=== PATIENT | female | born 2005 | race Caucasian/White ===

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

== ENCOUNTER → 2023-02-25 10:42 | Outpatient (BNV) | payer OTHER, SELFPAY ==
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
== END ==
PROVIDERS: PCP Physician Assistant; Visit Provider Nurse Practitioner Family
DX: G43.709 Chronic migraine without aura, not intractable, without status migrainosus (principal); F43.10 Post-traumatic stress disorder, unspecified; Z86.59 Personal history of other mental and behavioral disorders
CPT/HCPCS: 99205

== ENCOUNTER → 2024-05-25 09:08 | Outpatient (BNVA) | payer OTHER, SELFPAY | PROVIDERS: PCP Physician Assistant; Visit Provider Internal Medicine | DX: S80.02XA Contusion of left knee, initial encounter (principal); W01.0XXA Fall on same level from slipping, tripping and stumbling without subsequent striking against object, initial encounter | CPT/HCPCS: 73564; 99203 ==

== ENCOUNTER → 2024-06-02 12:55 | Outpatient (BNVA) | payer OTHER, SELFPAY | PROVIDERS: PCP Physician Assistant; Visit Provider Physician Assistant Medical | DX: S80.02XD Contusion of left knee, subsequent encounter (principal); W01.0XXD Fall on same level from slipping, tripping and stumbling without subsequent striking against object, subsequent encounter; M23.8X2 Other internal derangements of left knee | CPT/HCPCS: 99213 ==

== ENCOUNTER 2025-06-04 06:04 | Emergency (ER) | payer MEDICAID, SELFPAY ==
[2025-06-04 06:06] VITALS: BP 115/65; PULSE 108; RESP 16; TEMP 36.9; O2SAT 96; BMI 32.2
--- NOTE | 2025-06-04 06:21 | ED.WOUNDLAC ---
HPI - Wound/Laceration General Chief Complaint: Wound/Laceration Stated Complaint: right thumb laceration Time Seen by Provider: 06/04/25 06:17 Source: patient Mode of arrival: ambulatory Limitations: no limitations History of Present Illness HPI narrative: 19 years old the patient presented to emergency department complaining of laceration of the right arm she states she was cooking he she cut the right thumb accidentally Onset (ago): hour(s) (1) Location: other (Right thumb) Associated symptoms: none Related Data Home Medications ?Medication ?Instructions ?Recorded ?Confirmed lorazepam 0.5 mg tablet 1 tab PO DAILY PRN panic attack 09/03/22 09/03/22 Previous Rx's ?Medication ?Instructions ?Recorded diphenhydramine HCl 25 mg capsule 25 mg PO TID PRN migrane #14 caps 09/12/22 (Benadryl) ketorolac 10 mg tablet 10 mg PO TID PRN pain 5 days #15 09/12/22 tabs metoclopramide HCl 10 mg tablet 10 mg PO Q6H PRN migrane #14 tabs 09/12/22 (Reglan) sumatriptan succinate 25 mg tablet 25 mg PO Q2-4H PRN migraine 09/12/22 headache #7 tabs Allergies Allergy/AdvReac Type Severity Reaction Status Date / Time No Known Allergies (No Known Allergy Verified 06/04/25 06:08 Allergies*) Review of Systems Review of Systems: Yes all other systems are reviewed and are negative [facility] Past Medical History Medical History Chronic migraine without aura Bipolar disorder PTSD (post-traumatic stress disorder) Anxious depression Anxiety Chest pain Social History Social History Household Members: Family Housing: House Do you presently have visiting nurse or other home services: No Alcohol intake: current Alcohol intake frequency: holidays/special occasions only Alcohol type: beer, wine and hard liquor Patient Tobacco Use Status: Former Tobacco user Tobacco use type: Cigarette Cigarettes Per Day: 5 Years Smoked: 10 Smoked in Last 30 Days: Yes e-Cigarette/Vaping Use: Former Use Second Hand Smoke Exposure: Yes Use of substances other than those prescribed or required for medical reasons: No Substance Use Type: Marijuana Advance Directives: No Patient : No service: No Sexual orientation: Straight/Heterosexual Physical Exam Exam: Exam: She looks well not toxic Vital Signs: Vital Signs: Last Vital Signs Temp 98.3 F 06/04/25 06:43 Pulse 103 H 06/04/25 06:43 Resp 16 06/04/25 06:43 BP 117/66 06/04/25 06:43 Pulse Ox 95 06/04/25 06:43 O2 Del Method Room Air 06/04/25 06:43 BMI result Body Mass Index 32.2 Const: General: cooperative, comfortable and no acute distress Nutritional Appearance: average body habitus Orientation/consciousness: oriented to time Limitations: no limitations HEENT: Head: Yes normal to inspection General nose exam: Normal external nose present Throat: Yes posterior oropharynx normal Neck: Neck: Yes normal visual inspection and Yes full ROM Chest: Chest palpation & inspection: normal inspection of the chest Resp: Effort & Inspection: normal respiratory effort Auscultation: clear to auscultation bilaterally Cardio: Jugular venous distension: no JVD Rate: regular rate Rhythm: regular rhythm GI: Inspection: Yes normal to inspection Palpation (GI): Soft to palpation, not firm, nontender and no guarding Percussion: Yes normal to percussion Skin: General skin exam: no rashes or lesions noted and elasticity normal Lesions: no lesions Rashes: no rashes Neuro: General: oriented to time Extrem: Other: Examination of the right hand showed about 3 cm with a laceration distal phalanx, range of motion is full no deficits in sensation Medical Decision Making Medical Decision Making MDM Narrative: Patient is here with laceration of the right thumb full range of motion no deficit in strength no deficits in sensation we will go ahead and repaired the laceration Differential Diagnosis Differential Diagnoses: The differential diagnosis associated with the presentation includes Laceration thumb/tendon laceration/digital nerve lac Independent Historian significative other Procedures Laceration Laceration 1: Site: other (Rt Thumb) Side (If applicable): right Size (cm): 3 Description: linear and irregular Depth: simple, single layer Local Anesthetic: lidocaine 1% Amount of anesthesia used (mL): 2 Pre-repair: wound explored and irrigated extensively Skin layer closed with: nylon Size (cm): 4-0 Number of sutures: 4 Technique: simple, interrupted Discharge Plan Discharge Clinical Impression: Laceration of thumb, right Qualifiers: Encounter type: initial encounter Damage to nail status: without damage Foreign body presence: without foreign body Qualified Code(s): S61.011A - Laceration without foreign body of right thumb without damage to nail, initial encounter Patient Disposition: Home, Self-Care Instructions: Finger Laceration (ED) Additional Instructions: Stitches out in 7-10 days either return to the emergency room or urgent care or your primary care physician for stitches removal Prescriptions: No Action lorazepam 0.5 mg tablet 1 tab PO DAILY PRN (Reason: panic attack) ketorolac 10 mg tablet 10 mg PO TID PRN (Reason: pain) 5 Days Qty: 15 0RF Rx Instructions: Tolerated IM in the department diphenhydramine HCl [Benadryl] 25 mg capsule 25 mg PO TID PRN (Reason: migrane) Qty: 14 0RF metoclopramide HCl [Reglan] 10 mg tablet 10 mg PO Q6H PRN (Reason: migrane) Qty: 14 0RF sumatriptan succinate 25 mg tablet 25 mg PO Q2-4H PRN (Reason: migraine headache) Qty: 7 0RF Rx Instructions: do not exceed 8 doses per 24 hrs Stand Alone Forms: Work/School Release Interventions: ED Discharge Assessment Last Done: 06/04/25 06:43 Discharge Date/Time: 06/04/25 06:52 Print Language: Indian
--- NOTE | 2025-06-04 06:40 | PC.NURSE ---
Patient presents to ED after cutting her right thumb with a knife while cooking +CMS +ROM Patient endores ETOH use Patient denies pain VSS and up to date Provider stitched patient thumb Patient planned for discharge
[2025-06-04 06:43] VITALS: BP 117/66; PULSE 103; RESP 16; TEMP 36.8; O2SAT 95
--- OUTSIDE RECORDS SUMMARY | 2025-06-04 06:48 | XMS_ITS | Encounter Summary ---
Author Organization [facility] Address [address] [place] [address] [place] [address] Phone Care Team Providers Care Lag Screwer Name Role Phone Rafia Mullins MD Primary Care Provider [phone] Lennie Guzmán Primary Care Provider [phone] Ger Van MD Unavailable [phone] Kathleen Jimenez MD Unavailable [phone] Damian Issa Unavailable [phone] Constanza Duran Unavailable [email or web address] Brett Tee MD Unavailable [phone] Jackie SheikhW Unavailable favian Bella Calderon RN Unavailable Laxmi Martinez Unavailable Laxmi Martinez [email or web address] Damian Issa Unavailable [phone] Kathleen Jimenez MD Primary Care Provider [phone] Encounter Details Date Type Department Care Team (Latest Contact Info) Description 08/19/2018 Transcribe Orders [facility] Phleb Main [address] [place] [address] Maggy Garcia NP [address] [place] [address] [email or web address] Arthralgia, unspecified joint (Primary Dx) Social History Tobacco Use Types Packs/Day Years Used Date Smoking Tobacco: Never Assessed Comments Unknown Sex and Gender Information Value Date Recorded Sex Assigned at Female 12/14/2019 2:51 PM EDT Legal Sex Female 8:44 PM EDT Gender Identity Female 12/12/2021 5:25 AM EDT Sexual Orientation Bisexual 12/12/2021 5: 25 AM EDT documented as of this encounter Plan of Treatment Not on file documented as of this encounter Results * Lyme screen with reflex to Western blot, blood (08/19/2018 8:22 PM EST) Lyme AB IgG Negative Negative [facility] Lyme AB IgM Negative Negative [facility] Blood 08/19/2018 8:22 PM EST 08/19/2018 8:25 PM EST us Maggy Garcia UNDERGROUND DISTRIBUTION ENGINEER LAB BLOOD BKR ORDERABLES Final R esult [facility] [address] [place] [address] documented in this encounter Visit Diagnoses Diagnosis Arthralgia, unspecified joint- Primary documented in this encounter Additional Health Concerns Infection Onset Date Last Indicated Resolved Time COVID-19 04/02/2023 04/02/2023 04/23/2023 1:22 AM EDT documented as of this encounter Care Teams Lag Screwer Relationship Specialty Start Date End Date Rafia Mullins MD [address] [facility], [address] [place] [address] PCP - General 05/07/17 07/30/21 Lennie Guzmán PA [address] [place] [address] [email or web address] PCP - General 07/31/21 04/04/25 Kathleen Jimenez MD [address] [place], [place] [email or web address] PCP - General Family Medicine 04/05/25 Ger Van MD [address] [place], [place] [email or web address] Insurance Assigned Provider 04/28/22 05/27/22 Kathleen Jimenez MD [address] [place] [address] [email or web address] Insurance Assigned Provider 05/27/22 11/03/22 Damian Issa LICSW [address] [place] [phone] [email or web address] [facility] Field Services Director 09/14/22 04/19/24 Constanza Duran [address] [place] [address] [email or web address] Alcohol Rubber 11/01/22 11/06/22 Brett Tee MD [address] [place] [address] [email or web address] Insurance Assigned Provider 11/03/22 03/30/23 Jackie Sheikh LCSW [address] [place] [address] [email or web address] Field Services Director 01/08/23 04/03/23 Bella Calderon, EFREN [address] [place] [address] [facility] Helpdesk Technician 01/25/23 02/03/23 Laxmi Martinez [address] [place] [phone] Community Health Worker 06/11/23 09/09/23 Laxmi Martinez [address] [place] [address] [email or web address] Community Health Worker 01/06/24 03/16/24 Damian Issa LICSW [address] [place] [address] PHCM Field Services Director 12/22/24 01/19/25 documented as of this encounter Additional Source Comments The information contained in this document represents components of the legal health record. It is not the complete legal health record.[facility]
--- OUTSIDE RECORDS SUMMARY | 2025-06-04 06:48 | XMS_ITS | Encounter Summary ---
Author Organization [facility] Address [address] [facility] [address] [place] [address] Phone Care Team Providers Care Editor & Co Founder Name Role Phone Lennie Guzmán Primary Care Provider [phone] Damian Issa VENDING SUPERVISOR Unavailable [phone] Kathleen Jimenez MD Primary Care Provider [phone] Encounter Details Date Type Department Care Team (Late st Contact Info) Description 10/09/2024 Procedure Pass OR Admitting Dept - Virtual Department [address] [place] [address] Social History Tobacco Use Types Packs/Day Years Used Date Smoking Tobacco: Every Day Cigarettes Last attempted to quit: 2020 Smokeless Tobacco: Never Alcohol Use Standard Drinks/Week Comments Never 0 (1 standard drink = 0.6 oz pur e alcohol) Education Answer Date Recorded Are you interested in more education? Not on sumit e 11/16/2022 Are you concerned about learning? Not on file 11/16/2022 No 11/16/2022 No 11/16/2022 Digital Access Answer Date Recorded No 12/11/2022 No 12/11/2022 Reliable internet access at home? Not on file 12/11/2022 Device with a working camera? Not on file Intimate Partner Violence Answer Date R ecorded Are you denied basic needs s uch as food, clothing, or medical care? No 10/09/2024 In the past 12 months have y ou been in a relationship with a person who hurts, threatens, or tries to control you? No 10/09/2024 Are you denied basic needs s uch as food, clothing, or medical care? No 10/09/2024 In the past 12 months have y ou been in a relationship with a person who hurts, threatens, or tries to control you? No 10/09/2024 Comments Yes Sex and Gender Information Value Date Recorded Sex Assigned at Female 12/14/2019 2:51 PM EDT Legal Sex Female 8:44 PM EDT Gender Identity Female 12/12/2021 5:25 AM EDT Sexual Orientation Bisexual 12/12/2021 5: 25 AM EDT documented as of this encounter Plan of Treatment Not on file documented as of this encounter Visit Diagnoses Not on filedocumented in this encounter Additional Health Concerns Assessment Noted Time PHQ-9 Depression Total Score: 16 023 3:29 PM EST PHQ-2 Depression Total Score: 5 09/25/19 23 3:29 PM EST documented as of this encounter Care Teams Editor & Co Founder Relationship Specialty Start Date End Date Lennie Guzmán PA [address] [place] [address] [email or web address] PCP - General 07/31/21 04/04/25 Kathleen Jimenez MD [address] [place] [address] PCP - General Family Medicine 04/05/25 Damian Issa LICSW [address] [place] [address] PHCM Supervisor Pipelines 12/22/24 01/19/25 documented as of this encounter Additional Source Comments The information contained in this document represents components of the legal health record. It is not the complete legal health record.[facility]
--- OUTSIDE RECORDS SUMMARY | 2025-06-04 06:48 | XMS_ITS | Encounter Summary ---
Author Organization [facility] Address [address] [place] [address] Phone Care Team Providers Care Authors Motivational Name Role Phone Rafia Mullins MD Primary Care Provider [phone] Lennie Guzmán Primary Care Provider [phone] Ger Van MD Unavailable [phone] Kathleen Jimenez MD Unavailable [phone] Damian Issa Unavailable [phone] Constanza Duran Unavailable [email or web address] Brett Tee MD Unavailable [phone] Jackie SheikhW Unavailable favian Bella Calderon RN Unavailable Laxmi Martinez Unavailable [email or web address] Laxmi Martinez [email or web address] [email or web address] Damian Issa Unavailable [phone] Kathleen Jimenez MD Primary Care Provider [phone] Reason for Referral * Physical Therapy (Routine) - Closed Specialty Diagnoses / Procedures Referred By Contac t Referred To Contact Physical Therapy Diagnoses Encounter for rehabilitation System, Provider Not In, [facility] [id number] [place] [address] [place] [address] Phone: tel: Referral ID Status Reason Start Date Expiration Date Visits Re quested Visits Authorized [id number] Closed 09/25/2017 09/25/2018 1 1 Encounter Details Date Type Department Care Team (Latest Contact Info) Description 09/25/2017 Transcribe Orders [facility] [address] [place] [address] Eli Banks, NAT [address] [place] [address] [email or web address] Encounter for rehabilitation (Primary Dx) Social History Tobacco Use Types Packs/Day Years Used Date Smoking Tobacco: Never Assessed Comments Unknown Sex and Gender Information Value Date Recorded Sex Assigned at Female 12/14/2019 2:51 PM EDT Legal Sex Female 8:44 PM EDT Gender Identity Female 12/12/2021 5:25 AM EDT Sexual Orientation Bisexual 12/12/2021 5: 25 AM EDT documented as of this encounter Plan of Treatment Scheduled Referrals Name Type Priority Associated Diagnoses Orde r Schedule Ambulatory referral to [facility] Physical Therapy Outpatient Referral Routine Encounter for rehabilitation Ordered: 09/25/2017 documented as of this encounter Visit Diagnoses Diagnosis Encounter for rehabilitation- Primary documented in this encounter Additional Health Concerns Infection Onset Date Last Indicated Resolved Time COVID-19 04/02/2023 04/02/2023 04/23/2023 1:22 AM EDT documented as of this encounter Care Teams Authors Motivational Relationship Specialty Start Date End Date Rafia Mullins MD [address] [facility], [address] [place] [address] [email or web address] PCP - General 05/07/17 07/30/21 Lennie Guzmán PA [address] [place] [phone] [email or web address] PCP - General 07/31/21 04/04/25 Kathleen Jimenez MD [address] [place], [place] PCP - General Family Medicine 04/05/25 Ger Van MD [address] [place], [place] [email or web address] Insurance Assigned Provider 04/28/22 05/27/22 Kathleen Jimenez MD [address] [place] [address] Insurance Assigned Provider 05/27/22 11/03/22 Damian Issa LICSW [address] [place] [id number] [email or web address] [facility] Liaison Planner 09/14/22 04/19/24 Constanza Duran [address] [place] [phone] [email or web address] Instructor 11/01/22 11/06/22 Brett Tee MD [address] [place], [place] [email or web address] Insurance Assigned Provider 11/03/22 03/30/23 Jackie Sheikh LCSW [address] [place] [address] [email or web address] Liaison Planner 01/08/23 04/03/23 Bella Calderon RN [address] [place] [phone] [facility] [address] 01/25/23 02/03/23 Laxmi Martinez [address] [place] [phone] Community Health Worker 06/11/23 09/09/23 Laxmi Martinez [address] [place] [email or web address] Community Health Worker 01/06/24 03/16/24 Damian Issa LICSW [address] [place] [phone] PHCM Liaison Planner 12/22/24 01/19/25 documented as of this encounter Additional Source Comments The information contained in this document represents components of the legal health record. It is not the complete legal health record.[facility]
--- OUTSIDE RECORDS SUMMARY | 2025-06-04 06:48 | XMS_ITS | Encounter Summary ---
Author Organization [facility] Address [address] [facility] [address] [place] [id number] Phone Care Team Providers Care Ham Facer Name Role Phone Lennie Guzmán Primary Care Provider [phone] eGr Van MD Unavailable [phone] Kathleen Jimenez MD Unavailable [phone] Damian Issa DRAW END HAND Unavailable [phone] Constanza Duran Unavailable [email or web address] Brett Tee MD Unavailable [phone] Jackie SheikhW Unavailable favian Bella Calderon RN Unavailable Laxmi Martinez Unavailable Laxmi Martinez Unavailable Damian Issa DRAW END HAND Unavailable [phone] Kathleen Jimenez MD Primary Care Provider [phone] Encounter Details Date Type Department Care Team (Latest Contact Info) Description 11/13/2021 Transcribe Orders [facility] [address] [place] [address] Emilia Juarez CNM [address] [facility], [address] [place], [place] [id number] [email or web address] Encounter for supervision of normal first in first trimester (Primary Dx); Need for hepatitis C screening test; Screening for human immunodeficiency virus; Unplanned Social History Tobacco Use Types Packs/Day Years Used Date Smoking Tobacco: Former Cigarettes Q uit: 2020 Smokeless Tobacco: Never Alcohol Use Standard Drinks/Week Comments Not Currently 0 (1 standard drink = 0.6 oz pur e alcohol) not during Comments Yes Sex and Gender Information Value Date Recorded Sex Assigned at Female 12/14/2019 2:51 PM EDT Legal Sex Female 8:44 PM EDT Gender Identity Female 12/12/2021 5:25 AM EDT Sexual Orientation Bisexual 12/12/2021 5: 25 AM EDT documented as of this encounter Plan of Treatment Not on file documented as of this encounter Visit Diagnoses Diagnosis Encounter for supervision of normal first in first trimester- Primary Need for hepatitis C screening test Special screening examination for other specified viral diseases Screening for human immunodeficiency virus Special screening examination for other specified viral diseases Unplanned state, incidental documented in this encounter Additional Health Concerns Infection Onset Date Last Indicated Resolved Time COVID-19 04/02/2023 04/02/2023 04/23/2023 1:22 AM EDT documented as of this encounter Care Teams Ham Facer Relationship Specialty Start Date End Date Lennie Guzmán PA [address] [place] [address] [email or web address] PCP - General 07/31/21 04/04/25 Kathleen Jimenez MD [address] [place] [address] PCP - General Family Medicine 04/05/25 Ger Van MD [address] [place] [address] Insurance Assigned Provider 04/28/22 05/27/22 Kathleen Jimenez MD [address] [place] [address] Insurance Assigned Provider 05/27/22 11/03/22 Damian Issa LICSW [address] [place] [phone] PHCM Conduit Installer 09/14/22 04/19/24 Constanza Duran [address] [place] [phone] [email or web address] [email or web address] Delivery Department 11/01/22 11/06/22 Brett Tee MD [address] [place] [address] Insurance Assigned Provider 11/03/22 03/30/23 Jackie Sheikh LCSW [address] [place] [phone] [email or web address] Conduit Installer 01/08/23 04/03/23 Bella Calderon RN [address] [place] [phone] PHC Hand Fabric Cutter 01/25/23 02/03/23 Laxmi Martinez [address] [place] [email or web address] Community Health Worker 06/11/23 09/09/23 Laxmi Martinez [address] [place] [phone] Community Health Worker 01/06/24 03/16/24 Damian Issa LICSW [address] [place] [phone] [email or web address] PHC Conduit Installer 12/22/24 01/19/25 documented as of this encounter Additional Source Comments The information contained in this document represents components of the legal health record. It is not the complete legal health record.[facility]
--- OUTSIDE RECORDS SUMMARY | 2025-06-04 06:48 | XMS_ITS | Encounter Summary ---
Author Organization [facility] Address [address] [facility] [address] [place] [phone] Phone Care Team Providers Care Anthropology Instructor Name Role Phone Lennie Guzmán Primary Care Provider [phone] Kathleen Jimenez MD Primary Care Provider [phone] Encounter Details Date Type Department Care Team (Late st Contact Info) Description 04/02/2025 Procedure Pass [facility], Ct Scan - [address] [address] Social History Tobacco Use Types Packs/Day Years [...] on file 11/16/2022 No 11/16/2022 No 11/16/2022 Food Answer Date Recorded Within the past 6 months we worried whether our food would run out before we got money to buy more. Never True 04/03/2025 Within the past 6 months the food we bought just didn't last and we didn't have enough money to get more. Never True Residential Stability Answer Date Recor ded What is your housing situation today? I have ricky sing 04/03/2025 How many times have you move d in the past 12 months? Zero (I did not move) 04/03/2025 Paying for Meds Answer Date Recorded Do you have trouble paying for medicines? No 04/03/2025 Paying Utility Bills Answer Date Record ed Do you have trouble paying your heating or elect ricity bill? No 04/03/2025 Transportation Answer Date Recorded Has the lack of transportati on kept you from medical appointments or from getting medications? No 04/03/2025 Digital Access Answer Date Recorded No 04/03/2025 Yes 04/03/2025 Do you have reliable internet access at home? Ye s 04/03/2025 Do you have a device (e.g., phone, tablet, computer) with a working camera? Yes 04/03/2025 Intimate Partner Violence Answer Date R ecorded Are you denied basic needs s uch as food, clothing, or medical care? No 04/03/2025 In the past 12 months have y ou been in a relationship with a person who hurts, threatens, or tries to control you? No 04/03/2025 Are you denied basic needs s uch as food, clothing, or medical care? No 04/03/2025 In the past 12 months have y ou been in a relationship with a person who hurts, threatens, or tries to control you? No 04/03/2025 Comments No Sex and Gender Information Value Date Recorded Sex Assigned at Female 12/14/2019 2:51 PM EDT Legal Sex Female 8:44 PM EDT Gender Identity Female 12/12/2021 5:25 AM EDT Sexual Orientation Bisexual 12/12/2021 5: 25 AM EDT documented as of this encounter Functional Status * Calculated C-SSRS Risk Score (Lifetime/Recent) Answer Date of Assessment Author No Risk Indicated 04/02/2025 7:05 PM EDT Dana Johansen RN * [place] Suicide Severity Rating Scale (Screener/Recent Self-Report) Question Answer Date of Assessment Author 1. Wish to be (Past 1 Month) No 04/02/2025 7:05 PM EDT Dana Johansen, EFREN 2. Non-Specific Active Suicidal Thoughts (Past 1 Month) No 04/02/2025 7:05 PM EDT Dana Johansen, EFREN 6. Suicidal Behavior (Lifetime) No 04/02/2025 7:05 PM EDT Dana Johansen RN documented as of this encounter Plan of Treatment Not on file documented as of this encounter Visit Diagnoses Not on filedocumented in this encounter Additional Health Concerns Assessment Noted Time PHQ-9 Depression Total Score: 16 023 3:29 PM EST PHQ-2 Depression Total Score: 5 09/25/19 23 3:29 PM EST documented as of this encounter Care Teams Anthropology Instructor Relationship Specialty Start Date End Date Lennie Guzmán PA [address] [place] [address] [email or web address] PCP - General 07/31/21 04/04/25 Kathleen Jimenez MD [address] [place] [address] [email or web address] PCP - General Family Medicine 04/05/25 documented as of this encounter Additional Source Comments The information contained in this document represents components of the legal health record. It is not the complete legal health record.[facility]
--- OUTSIDE RECORDS SUMMARY | 2025-06-04 06:48 | XMS_ITS | Clinical Summary ---
Author Organization [facility] Address [address] [place] [id number] Phone Care Team Providers Care Retail Sales Professional Name Role Phone Kathleen Jimenez MD Primary Care Provider [phone] Allergies Active Allergy Reactions Criticality Noted Date Comments Adhesive Hives 04/18/2023 Cat Hair Standardized Allerg enic Extract Hives 03/19/2018 Hives, eyes puffy Medications LORazepam (ATIVAN) 0.5 MG tabletIndicatio ns:anxiety Take 0.5 mg by mouth every 6 (six) hours as needed for anxiety. Indications: anxious Active acetaminophen (TYLENOL) 325 mg tablet Take 2 tablets (650 mg total) by mouth every 6 (six) hours as needed for pain (specific location in comments). 10/09/2024 Active ibuprofen (ADVIL,MOTRIN) 200 MG tablet Take 3 tablets (600 mg total) by mouth every 6 (six) hours as needed for pain (specific location in comments). 10/09/2024 Active oxyCODONE 5 MG immediate release tablet Take 1-2 tablets (5-10 mg total) by mouth every 8 (eight) hours as needed for pain (specific location in comments). Pt. may request partial fill 3 tablet 10/09/2024 Active polyethylene glycol (MIRALAX) 17 gram/dose powder Take 17 g by mouth daily. 289 g 04/02/2025 Active simethicone 125 mg Cap Take 1 capsule (125 mg total) by mouth 4 (four) times a day as needed (gas). 30 capsule 04/02/2025 Active Active Problems Problem Noted Date Diagnosed Date Cellulitis of abdominal wall 08/07/2023 Assessment & Plan (08/07/2023 2:49 PM EST): Coco reports that she called yesterday due to redness at incision site. There is no fever/chills or pain. O: Abdomen: CS incision is overall well healed but there is a 1 cm area where there is erythema along the edges of incision and appears to be a small amount of mucopurulent exudate at the site. Incision is not open in that area. Under incison there is a 1 cm area which feels firm. A: Cellulitis of portion of C/S incision P: C/W Dr Coto - he recommends starting a course of Keflex and seeing back in 1 week Recommended for Coco to keep clean and dry Call with growing redness, pain, fever/chills Rx for Culturelle sent as well due to antibiotics Breast pain 08/02/2023 Assessment & Plan (08/02/2023 2:52 PM EST): - Received comfort measures for breast like Ibuprofen, ice/heat, trying to breast feed around the same times every day so body can regulate Bilateral thoracic back pain 08/02/2023 Assessment & Plan (08/07/2023 2:43 PM EST): Has not yet called Chiropractic for appt or picked up Lidocaine patches. Will try. 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 Some days there is no bleeding, sometimes she has brown/yellow light bleeding, small clot came out yesterday O: US prelim report shows no increased endometrial lining, no evidence of retained POC Small amount of free fluid is likely blood A: Bleeding has improved since last visit, no evidence of retained POC P: Reassured and reviewed expectations for PP period Assessment & Plan (07/31/2023 6:26 PM EST): Coco reports that she is passing clots daily some about palm sized. Overall flow is not too heavy in between. She does not that she has heavier bleeding with more activity. O: See PE A: 3 weeks PP Passing clots PP P: Pt declined bimanuel exam US ordered to assess uterine lining Recommended decreasing activity level anemia 07/12/2023 Overview (07/12/2023): C section QBL 1540- Symptomatic anemia Lab Results Component Value Date WBC 11.10 (H) 07/12/2023 WBC 10.69 07/10/2023 WBC 10.16 06/12/2023 RBC 2.72 (L) 07/12/2023 RBC 4.04 07/10/2023 RBC 3.38 (L) 06/12/2023 HGB 7.9 (L) 07/12/2023 HGB 11.8 07/10/2023 HGB 9.8 (L) 06/12/2023 HCT 24.6 (L) 07/12/2023 HCT 35.4 07/10/2023 HCT 29.9 (L) 06/12/2023 PLT 165 07/12/2023 PLT 236 07/10/2023 PLT 259 06/12/2023 MCV 90.4 07/12/2023 MCV 87.6 07/10/2023 MCV 88.5 06/12/2023 MCH 29.0 07/12/2023 MCH 29.2 07/10/2023 MCH 29.0 06/12/2023 MCHC 32.1 07/12/2023 MCHC 33.3 07/10/2023 MCHC 32.8 06/12/2023 RDW 15.9 07/12/2023 RDW 15.4 07/10/2023 RDW 13.6 06/12/2023 MVP 11.1 07/12/2023 MVP 10.7 07/10/2023 MVP 10.1 06/12/2023 NRBCA 0.00 01/25/2022 NRBCA 0.00 12/12/2021 NRBCA 0.00 08/06/2021 Assessment & Plan (2023 4:50 PM EST): Improvement to 10.4 on day 2 , received 1 unit PRBC. Asymptomatic on day 3. care following delivery 06/22 Assessment & Plan (2023 4:49 PM EST): Client is very sore, is passing gas, no BM yet but very attentive to bowel regimen, continue to monitor. Had BM day of admission in labor. Migraine 03/08/2023 Assessment & Plan (03/08/2023 1:38 PM EDT): Having more frequent migraines. Started taking magnesium which she thinks is helping but continues to have a couple of migraines a week. Tylenol does not help. Is needing to restto get them to go away which means she is missing school. Will send Rx for fioricet to take if needed. She will continue to take magnesium. Rubella non-immune status, antepartum 12/11/2022 Overview (12/11/2022): Offer MMR PP Assessment & Plan (2023 4:48 PM EST): Discussed and offered vaccination- client declined in immediate but will do in the future with PCP Maternal varicella, non-immune 12/11/2022 Overview (12/11/2022): Offer Varivax PP Assessment & Plan (2023 4:48 PM EST): Discussed and offered vaccination- client declined in immediate but will do in the future with PCP Genital warts 07/27/2021 Depression 11/01/2015 Overview (05/02/2023): Pt reports h/o manic depression diagnosis. Has taken ability and prozac in past and felt this was not helpful. Has been hospitalized for depression or checked in for respite before, as recent as 08/2022. Assessment & Plan (07/22/2023 3:57 PM EST): See note under Anxiety A&P Assessment & Plan (2023 4:48 PM EST): Schedule early visit (either telehealth or in person) for increased risk depression and anxiety Assessment & Plan (06/12/2023 5:40 PM EST): Continues to feel depressed and anxious. Has missed some appts with therapist because she didn't know if it was in person or not. She is trying to find another therapist. Still working on housing- Asking for letter of support. WIll send through portal. There is a lot on her plate with finishing school and her partner was diagnosed with Epilepsy over this past year. Offered referral for food insecurity which she accepts- Placed on [facility] cares. Assessment & Plan (05/02/2023 3:27 PM EDT): EPDS 20 today. Denies SI. Explains she feels her current situation is contributing to her depression currently -- she is living with her grandmother as she states she can't get approved for housing, working on college classes and is taking her HISET completion test tomorrow, hoping to pass this time but can take two other times if needed. Is working with a therapist at [facility], but feels she would like to try another therapist, will look into options for this for pt at [facility]. Pt reports h/o manic depression diagnosis. Has taken ability and prozac in past and felt this was not helpful, does not wish to disc medication options in . Has been hospitalized for depression in past or checked in for respite before, as recent as 08/2022. Is aware of when/how to contact crisis. Assessment & Plan (03/08/2023 1:33 PM EDT): Sees therapist at [facility]. Is feeling really overwhelmed with , school, getting services she needs, looking for housing. Having trouble sleeping. Tried psych meds in the past and did not like them. Does not want them now. Having trouble sleeping due to stress. Discussed sleep hygiene, using sleep casts/meditations, tylenol PM if needed. She will try those things. Denies SI/HI. Has support from partner and family. Has places to live but really wants her own place. 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 Anxiety disorder 04/12/2015 Overview (11/16/2022): Diagnosed (along with depression, PTSD) at age 4. Pt feels this was primarily a childhood diagnosis Has taken Prozac and a mood stabilizer (does not remember name) - neither worked well Remote history of self-harm Does not have a relationship with her mom anymore Has managed well since 2018 without meds Has Rx for Lorazepam prn - not taking Has a director semiconductor through [facility] - working on housing Assessment & Plan (08/02/2023 2:43 PM EST): Coco and Antonino are feeling much better over the past few weeks. Continue to support and follow for s/s of PP anxiety and depression Assessment & Plan (07/22/2023 4:05 PM EST): A: Anxiety P: Recommended continued close support - weekly for now Discussed option of med management - she is not interested at this time Support groups when able (not feeling ready right now) Discussed trying to add in something small for mental health self care - going outside, finding humor, shower, continuing to ask for help Continue tag teaming with Antonino, getting support from her grandmother Support around baby health given - reassured Assessment & Plan (2023 4:48 PM EST): Schedule early visit (either telehealth or in person) for increased risk depression and anxiety Assessment & Plan (06/27/2023 11:13 AM EST): Still waiting on housing. Assessment & Plan (06/12/2023 5:42 PM EST): See other tab Assessment & Plan (05/05/2023 4:35 PM EDT): Reports anxiety, has referral to therapy Accepts weekly visits -continue to check in about anxiety Has declined meds, asked about Lorazepam - I recommended avoiding during as there are other preferable meds. Ok to take benadryl We discussed coping techniques Assessment & Plan (04/18/2023 11:21 AM EDT): EPDS 16 today. States anxiety is worse. Has great self-care strategies and support from [facility] and her therapist. Denies SI/HI. Encouraged pt to see therapist weekly and reviewed warnings. Assessment & Plan (02/12/2023 7:46 AM EDT): Reports stable mood today. Assessment & Plan (01/04/2023 1:17 PM EDT): Seeing therapist and that is helping as is talking about it with her partner. [facility] has just requested a new one because she feels like she is needing different resources. The main thing she is working on is housing. She is currently homeless but stays with her partner at his mom's house. She has the info for [employer] and is going to go there, will also go to [facility] and [facility] for resources. Looking at [facility] options - will need to go through [facility]. Also gave info on [facility] for other resources. Assessment & Plan (12/06/2022 3:40 PM EDT): Coco continues to feel a bit of anxiety around . She was very reassured to hear a strong heartbeat today. EPDS 13. She met with a director semiconductor this morning and has plan to meet again next week. She is still waiting on a therapist. She is feeling well supported and is excited to have support accessing resources. Will continue to check in at upcoming appts. Assessment & Plan (11/21/2022 8:53 PM EDT): Coco has felt increased anxiety recently. She previously took Lorazepam but has not been taking in . She thinks she may have Bipolar Disorder - Brief bipolar screen done and positive. Coco would like to be set up for therapy referral - placed with [facility]. At this time she prefers not to take meds because of the but is accepting of referrals. Will contact and offer Psych referral as well. She feels like she is not sleeping well because of and nausea/vomiting. Accepts Unisom and B6 and wants to see if better sleep will help mood/anxiety. Please do EPDS at [facility] Resolved Problems Problem Noted Date Diagnosed Date Resolved Date Failure to progress in labor , delivered, current hospitalization 07/11/2023 08/07/2023 Normal intrauterine , antepartum 07/10/2023 08/07/2023 Vision changes 06/12/2023 08/02/2023 Assessment & Plan (06/12/2023 4:52 PM EST): Coco reports vision changes which she notices when crying or moving but also sometimes at rest - like flashing wiggly lines. Denies current CALIXTO or RUQ pain. BP normal x 2. During visit, she felt like the vision changes were worsening. Sent to [facility] for eval Pelvic cramping 05/10/2023 08/07/2023 Overview (05/10/2023): See triage note 05/10, treated empirically for UTI despite negative UA given clinical s/s and no s/s vaginitis. Can stop antibiotics if negative culture, follow up as needed. Decreased movements in third trimester 3 2023 Assessment & Plan (05/05/2023 4:35 PM EDT): Reactive NST reassured COVID-19 affecting in second trimester 04/02/2023 08/07/2023 Overview (05/02/2023): Date of symptom onset or positive test: 04/02/23 Gestational age at diagnosis: 27+1 Virtual visits for non-urgent care until COVID-19 infection status is resolved as defined by current B policy: https://[email or web address]/hub/departments/emergency_preparedness/covi d19/c wnqu28_tppykyay_fgkkctvt/infection_statuses_and_resolution_ Offer growth US at 30-32 weeks (or 2-4 weeks after infection occurring after 32 weeks) - needs to be ordered at upcoming OB appt Growth u/s on 05/02/23 at 31w3d 40.1%ile Assessment & Plan (05/02/2023 3:18 PM EDT): Growth u/s today 40.1%ile. Assessment & Plan (04/18/2023 11:07 AM EDT): Growth US ordered Assessment & Plan (04/04/2023 2:20 PM EDT): Discussed growth U/S at 32 weeks, order and schedule at n.v. Abdominal pain affecting 03/17/2023 08/07/2023 Assessment & Plan (03/17/2023 7:29 PM EDT): A: Abdominal Pain at 24 6/7 weeks R/O Labor No evidence of cervical dilation FHR reassuring P: Send UA, UC Wet mount negative Will continue to watch for contractions, PO hydrate FFN not sent d/t sex in last 24 hrs, GBS held as well Encounter for suspected PROM , with rupture of membranes not found 03/17/2023 05/16/2023 Assessment & Plan (05/05/2023 4:36 PM EDT): No evidence of ROM on exam Reassured Assessment & Plan (03/17/2023 7:28 PM EDT): A: No evidence of PROM P: Reassured Nausea and vomiting of , antepartum 05/16/2023 Assessment & Plan (02/12/2023 7:46 AM EDT): Greatly improved, still has intermittent symptoms but managing. Assessment & Plan (01/04/2023 1:13 PM EDT): Coco has still been feeling a lot of food aversions and has felt like she has been gagging a lot. She is vomiting a few times a week. Can eat and drink in between. Has a few reliable things she can eat and we talked about continuing small frequent meals. Cannot tolerate PNV - Rx for folic acid sent. Coco is having a lot of heartburn but has been hesitant to take medication. We reviewed that Tums is Calcium and that helped her feel better - she will continue TUMS as needed. Declines other meds at this time. Assessment & Plan (11/21/2022 8:54 PM EDT): Tried Reglan because pt stated that Unisom had not worked for her in the past but Reglan has not been helping and on review, she does not recall taking Unisom before. Agrees to try Unisom and B6, also reviewed lifestyle changes including small, frequent meals, bland foods. Encounter for supervision of normal in third trimester 11/21/2022 07/11/2023 Overview (06/17/2023): [facility] OB CMI 0 Group PN care--plans to enroll Rh Pos GC/Chlam neg PAP Not yet needed d/t age Tdap 05/02/23 Flu 05/02/23 COVID-19* Hgb 10.5 GTT 92 28 wk Repeat RPR neg GBS neg PPBC condoms screening Desires CFDNA and Fundamental Foresight neg/neg Baby Jenn Assessment & Plan (07/10/2023 8:25 AM EST): Coco is a 17yo at 41w0d who presents for routine OB visit following BPP for postdates today that was 02/26, fetus vertex. Feeling done, ready to have her baby, feeling nervous about induction though would like to schedule one today. Fetus vertex. Cervical exam today, fingertip/posterior, unable to do requested membrane sweep. Disc ways to promote labor. IOL scheduled for 07/11/23 PM for cervical ripening, disc what to expect. RTO on 07/10/23 for NST. Reviewed when to call. Assessment & Plan (07/04/2023 4:43 PM EST): Here with her partner. Feeling very nervous about upcoming labor recently, states she doesn't mind if he stays in a little longer. She has been trying to encourage labor onset, however, with walking, lunging, pumping, intercourse. We discussed postdates plan of care. Reviewed risks of postdates vs benefits of spontaneous labor onset. Discussed membrane sweep as desired, she declines today. Cervix is FT, soft. Plan for BPP at 41 weeks and visit to follow, will plan to discuss IOL in more depth and schedule at n.v. 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 VE done at patient's request today, fingertip/50%/head not in pelvis yet. Plan to discuss IOL versus expectant management again next week, patient would like to avoid IOL at this time. 3rd tri comforts measures reviewed. Disc steps to take toward optimal health in . Reviewed s/s labor, danger signs, when/how to call. Assessment & Plan (06/12/2023 5:18 PM EST): Coco is a 17 y.o. at 37w2d doing ok. Denies VB/LOF/Ctxs. + FM. GBS sent today Assessment & Plan (05/30/2023 10:15 AM EST): She notes good movement. Denies any vaginal bleeding, leakage of fluid, or regular tractions. Overall, she is doing well. Plan on GBS at next visit. Assessment & Plan (05/16/2023 10:18 AM EDT): Here with partner. She feels tired but overall pretty well, enjoys the third trimester. Starting to have some fear around childbirth - has some anxiety around medical settings, worried about labor pains, obstetric lac. Discussed all of these and normalized some fear around the process. Encouraged her to note anything that would help us to take good care of her. She is interested in unmedicated but flexible. Baby has been very active. PP BCM discussed, they plan to use condoms. Assessment & Plan (05/02/2023 3:26 PM EDT): Coco is a 17yo at 31w3d who presents for routine OB visit, presents with partner. She reports to be having a hard time. She has been feeling depressed, reports a h/o manic depression. Her EPDS is 20 today, see details regarding depression under depression problem for today's visit. TDAP and Flu vaccine today after review. Struggling with constipation, hard BM every three days, taking colace BID. Requests simethicone and miralax rx, sent to pharmacy. We reviewed anemia on her recent labs, disc level is borderline for iron supplementation, pt has not been taking PNV, rec she start taking PNV daily. Reviewed T3 warning signs and when to call. RTO 2 wks. Assessment & Plan (04/18/2023 11:24 AM EDT): Coco reports feeling very tired and anxious overall but not so much today. Getting great support and feeling stable. We discussed coping strategies and she already uses some Baby is very active, denies s/sx of PTL Will do 3T labs today. Aware of growth US scheduled for Covid infection. GODWIN 2 wks. Assessment & Plan (04/04/2023 2:19 PM EDT): Telehealth visit due to current Covid-19 infection. Feeling very congested and tired, but feels like symptoms are improving. Previously had a fever but none recent. Reviewed symptomatic care and return to in-person visits. Baby has been moving well but she has not felt her yet today. Will drink something cold and lie on her side after phone call and contact office she is not feeling movement. Discussed GTT/CBC/RPR, she will do these with her next visit. Assessment & Plan (03/08/2023 1:34 PM EDT): Coco is doing ok. Baby is active. No concerns. 28 week labs ordered and reviewed. Assessment & Plan (03/05/2023 9:35 PM EDT): Coco is here with Antonino. She is doing well overall. Baby is moving well. Group topics reviewed include healthy diet and weight gain in , iron rich foods, 28 week labs. Assessment & Plan (02/12/2023 7:46 AM EDT): Here with her partner. Just had normal anatomy scan, results reviewed. She is feeling regular movement. Discussed childbirth education and GPC. Assessment & Plan (01/24/2023 12:32 PM EDT): Coco is a 17yo @ 17+3wks. Starting to feel fm. Denies vb, lof, ctxs/cramps Currently living with boyfriend but getting support through for housing. Pt planning to enroll in GED program at the [facility]. Referred pt to healthy families today. Discussed options of GPC and CBE pt very interested in both. Discussed upcoming US and follow up GODWIN at that visit. Assessment & Plan (01/04/2023 1:14 PM EDT): Coco is a 17 y.o. at 14w4d doing well. Here with partner. Would like to come in a little sooner than 4 weeks for NV - will have a visit between now and the 20 week US. Anatomy US ordered. Assessment & Plan (12/10/2022 2:46 PM EDT): Coco had sex last night and noticed a small amt of BRB, just spotting, today it is brown when she wipes, no flow. No cramping. Needs some reassurance w FHTs, which were 140s. Disc that it is very common to have a little spotting after intercourse or orgasm and it almost always nothing to worry about. If this becomes persistent or bleeding is like a flow, she should call back. She is amenable to plan. RTO for routine PNC. Complete molar 11/29/202108/2021 Overview (06/22/2022): 12/12/21: D&C (pathology confirms complete molar ) 12/22/21: HCG 1227 01/02/22: HCG 77.9 01/09/22: HCG 21.7 01/16/22: HCG 9.3 01/25/22: HCG 3.4 01/30/22: HCG 2.5 02/05/22: HCG 1.5 02/16/22: HCG 0.6 03/08/22: HCG 0.2 03/27/22: HCG <1 04/2022: neg HCG No additional testing Assessment & Plan (02/07/2022 9:05 PM EDT): Reviewed pathology report - advised that molar can result in gestational trophoblastic disease and/or can recur in subsequent pregnancies. Reviewed recommendation for continued weekly HCG until level is zero then monthly testing x3 months. In subsequent pregnancies, HCG quant levels will need to be followed to ensure adequate rise then US can be ordered to confirm viability. Assessment & Plan (11/29/2021 4:03 PM EDT): Final read of US states There is no clear intrauterine gestation seen. The endometrium is thickened and heterogeneous with multiple small cystic areas within. There is one larger central cystic area that could represent an early gestational sac. While there is no increased vascularity within the endometrium, molar cannot be excluded. Recommend clinical correlation with serum HCG levels and patient's clinical presentation and dates. Reviewed finding with Coco and explained molar . Discussed we will follow her hormone level to ensure it returns to zero - if it does not, may need D&C She will start OCPs as planned Serial, weekly beta-hcg ordered All questions answered Assessment & Plan (11/29/2021 3:53 PM EDT): Discussed findings with patient and her partner. Reviewed etiology and incidence of miscarriage, and answered all patient questions. Encounter for counseling reg arding contraception 11/29/2021 11/21/2022 Overview (11/29/2021): Coco has had spontaneous AB. She does not desire at this time. Assessment & Plan (11/29/2021 3:48 PM EDT): Coco has taken OCPs in the past and would like to restart them. She is not interested in IUD or Nexplanon. Would prefer something that doesn't affect her hormones too much. - Recommended starting low-dose OCPs. Reviewed importance of taking at same time daily for maximum effectiveness. Reviewed warning signs of blood clot via ACHES. - Discussed condoms do not protect against STIs and that it takes 7 days before they are fully effective, so would need to use a back-up method for the first week. - Reviewed okay to resume intercourse whenever she feels ready. Encounter for supervision of normal first in first trimester 11/07/2021 11/29/2021 Lower abdominal pain 023 Encounters Date Type Department Care Team Description 05/24/2025 [facility] RISK SCORES SYSTEM GENERATED External System Generated Encounter [id number] [place] [id number] Unknown, Unknown, 04/19/2025 [facility] RISK SCORES SYSTEM GENERATED External System Generated Encounter [id number] [place] [id number] Unknown, Unknown, 04/03/2025 3:35 AM EDT Ancillary Procedure [facility], Ultrasound [address] [address] Kristie Patino MD 04/03/2025 12:54 AM EDT - 04/03/2025 10:52 AM EDT Emergency [facility] [address] [place] [address] Kristie Patino MD Perez, Alberto Juan Ignacio, MD Discharge Disposition: Home or Self Care 04/02/2025 11:20 AM EDT Office Visit [facility] at [address] [address] Katja Palma CNP Abdominal pain, unspecified abdominal location (Primary Dx) 04/02/2025 11:11 AM EDT - 04/02/2025 2:31 PM EDT Emergency [facility] Emergency [address] [place] [id number] Discharge Disposition: Home or Self Care 04/02/2025 Procedure Pass [facility], Ct Scan - [address] [address] from Last 3 Months Immunizations Immunization Administration Dates Next Due DTaP 08/21/2007, 5,01/17/2004,11/15,2003 HPV9 09/28/2019,03/19/2018 Hepatitis A, ped/adol, 2 dose 02/20/2022, 020 Hepatitis B, unspecified formulation 04/18/2004, 2003,2003 Hib, unspecified formulation 10/12/2004, 01/17/2004,2003,09/17 Influenza Quadrivalent Intranasal 10/21/2014,04/2014 Influenza Quadrivalent Prese rvative Free IM 05/02/2023,05/26/2021,08/13/2019 Influenza quadrivalent nasal 08/21/2012,07/30/19 12,07/11/2010 Influenza, Unspecified Formulation 07/18/2008,,04/18/2004 MMR 08/21/2007,07/13/2004 Meningococcal MCV4P 09/28/2019,11/01/2015 Pneumococcal conjugate, PCV 7 2003 Pneumococcal conjugate, unsp ecified formulation 10/12/2004,04/18/2004,2003,09/14 Polio, Unspecified Formulation 8,01/17/2004,2003,09/17 Tdap 05/02/2023,11/23/2014 Varicella 08/21/2007,07/13/2006 Family History Medical History Relation Comments Breast cancer Maternal Aunt Diabetes Maternal Grandmother Hyperlipidemia Maternal Grandmother Parkinson's disease Paternal Great-Grandmother Relation Status Comments Maternal Aunt Alive Maternal Grandmother Paternal Great-Grandmother Social History Tobacco Use Types Packs/Day Years Used Date Smoking Tobacco: Every Day Cigarettes Last attempted to quit: 2020 Smokeless Tobacco: Never Tobacco Cessation:Ready to Q uit: Not Asked; Counseling Given: Not Answered Alcohol Use Standard Drinks/Week Comments Never 0 [...] your housing situation today? I have ricky frazier 04/03/2025 How many times have you move [...] Orientation Bisexual 12/12/2021 5: 25 AM EDT Last Filed Vital Signs Vital Sign Reading Time Taken Comments Blood Pressure 105/65 04/03/2025 10:09 AM EDT Pulse 78 04/03/2025 10:09 AM EDT Temperature 36.5 C (97.7 F) 04/03/2025 10:09 AM EDT Respiratory Rate 18 04/03/2025 10:09 AM EDT Oxygen Saturation 97% 04/03/2025 10:09 AM EDT Inhaled Oxygen Concentration - - Weight 81.6 kg (180 lb) 04/02/2025 11:35 AM EDT Height 160 cm (5' 3 ) 04/02/2025 11:35 AM EDT Body Mass Index 31.89 04/02/2025 11:35 AM EDT Plan of Treatment Health Maintenance Due Date Last Done Comments MENINGOCOCCAL VACCINES (B) ( 1 of 2 - Standard) 2019 ADOLESCENT UNIVERSAL LIPID SCREENING 2020 PNEUMOCOCCAL VACCINES (0-49 years) (1 of 2 - PCV) 2022 10/12/2004, 04/18/2004, 2003, Additional history exists DEPRESSION SCREENING 09/25/2023 09/24/2022, 09/25/19 INFLUENZA VACCINE (#1) 2025 , 05/26/2021, 08/13/2019, Additional history exists COVID-19 VACCINE (2 - 2024-2 6 season) 2025 10/25/2023 CHLAMYDIA SCREENING 09/28/2025 09/28/2024, 05/10/2023, 03/17/2023, Additional history exists SMOKING Hx and SMOKELESS TOB ACCO SCREENING 10/07/2025 10/07/2024 Contraceptive Implant 08/23/2026 08/23/2023 PAP SMEAR 09/10/2027 09/10/2024 Adult Td,Tdap Booster 05/02/2033 05/02/2023, 015 COMBINED DTaP,Tdap,Td (8 - T d or Tdap) 05/02/2033 05/02/2023, 11/23/2014, 08/21/2007, Additional history exists HIB VACCINES Completed 10/12/2004, 12/21, 2003, Additional history exists MMR VACCINES Completed 08/21/2007, 07/13/2004 HPV VACCINES Completed 09/28/2019, 03/19/2018 MENINGOCOCCAL VACCINES (ACWY) Completed 09/28/2019, 11/01/2015 HEPATITIS A VACCINES Completed 02/20/2022, 09/28/19 20 HEPATITIS C SCREENING Completed 12/06/2022 , 12/06/2022, 12/06/2022 HIV ONE-TIME SCREENING (18-6 5 YEARS) Completed 12/06/2022 Medical Devices Not on file Procedures Procedure Name Priority Date/Time Associated Diagnosis Comments US ABDOMEN LIMITED SINGLE ORGAN Routine 04/03/2025 9:18 AM EDT URINALYSIS WITH REFLEX TO URINE CULTURE STAT 04/03/2025 4:02 AM EDT US BEDSIDE Routine 04/03/2025 3:33 AM EDT ECG 12-LEAD STAT 04/03/2025 2:19 AM EDT C-REACTIVE PROTEIN (CRP) Routine 04/02/2025 7:26 PM EDT LIPASE STAT 04/02/2025 7:26 PM EDT LFTS (HEPATIC PANEL) STAT 04/02/2025 7:26 PM EDT HCG, SERUM QUALITATIVE STAT 04/02/2025 7:26 PM EDT BASIC METABOLIC PANEL (BMP) STAT 04/02/2025 7:26 PM EDT CBC AND DIFFERENTIAL STAT 04/02/2025 7:[address] ABDOMEN/PELVIS WITH CONTRAST Routine 04/02/2025 12:40 PM EDT URINE SEDIMENT STAT 04/02/2025 11:46 AM EDT URINALYSIS WITH REFLEX TO URINE CULTURE STAT 04/02/2025 11:46 AM EDT LIPASE STAT 04/02/2025 11:42 AM EDT LFTS (HEPATIC PANEL) STAT 04/02/2025 11:42 AM EDT HCG, SERUM QUALITATIVE STAT 04/02/2025 11:42 AM EDT BASIC METABOLIC PANEL (BMP) STAT 04/02/2025 11:42 AM EDT CBC AND DIFFERENTIAL STAT 04/02/2025 11:42 AM EDT CHLAMYDIA TRACHOMATIS AND NEISSERIA GONORRHOEAE NUCLEIC ACID DETECTION Routine 09/28/2024 9:04 AM EDT Unwanted PAP TEST Routine 09/10/2024 12:00 AM EST HEPATITIS C ANTIBODY, QUALITATIVE Routine 12/06/2022 1:44 PM EDT Encounter for supervision of other normal in first trimester from Last 3 Months or Most Recently Relevant to Health Maintenance Results * US ABDOMEN LIMITED SINGLE ORGAN (04/03/2025 9:18 AM EDT) Anatomical Region Laterality Modality Abdomen Ultrasound 04/03/2025 9:32 AM EDT Impressions 04/03/2025 9:58 AM EDT No sonographic evidence of acute cholecystitis. ATTESTATION: I, Julieta Haque as teaching physician, have reviewed the images for this case and if necessary edited the report originally created by Kasandra Leyva. Narrative 04/03/2025 9:58 AM EDT US ABDOMEN LIMITED ONE OR MORE ORGANS Referring clinician's provided indication for this examination in Epic: Cholecystitis; Cholelithiasis; Pain TECHNIQUE: US Abdominal limited one or more organs. COMPARISON: CT ABDOMEN/PELVIS WITH CONTRAST FINDINGS: Liver: Incompletely imaged. No focal lesions where visualized. Gallbladder: No gallstones or gallbladder wall thickening. Tovar's Sign: Negative. Biliary: No extrahepatic biliary ductal dilatation. The common bile duct measures 3 mm. Procedure Note Sita Bonds MD - 04/03/2025 US ABDOMEN LIMITED ONE OR MORE ORGANS Referring clinician's provided indication for this examination in Epic:Cholecystitis; Cholelithiasis; Pain TECHNIQUE: US Abdominal limited one or more organs. COMPARISON: CT ABDOMEN/PELVIS WITH CONTRAST FINDINGS: Liver: Incompletely imaged. No focal lesions where visualized. Gallbladder: No gallstones or gallbladder wall thickening. Tovar's Sign: Negative. Biliary: No extrahepatic biliary ductal dilatation. The common bile duct measures 3 mm. IMPRESSION: No sonographic evidence of acute cholecystitis. ATTESTATION: IJulieta as teaching physician, havereviewed the images for this case and if necessary edited the reportoriginally created by Kasandra Leyva. Kristie Patino MD IMG US ABDOMEN Final Result * Urinalysis w/reflex Urine Culture (04/03/2025 4:02 AM EDT) Only the most recent of2 resultswithin the time period is included. COLOR Yellow Yellow [facility] CLARITY HAZY [facility] GLUCOSE Negative Negative [facility] BILI Negative Negative [facility] KETONES Negative Negative [facility] SPECIFIC GRAVITY <1.005 1.005 - 1.030 [facility] BLOOD Negative Negative [facility] PH 6.0 5.0 - 8.0 [facility] Protein-UA Negative Negative [facility] NITRITE Negative Negative [facility] Leukocyte esterase, ur Negative Negative [facility] Urine (Urine) 04/03/2025 4:0 2 AM EDT 04/03/2025 4:15 AM EDT us Lissette Flower MD LAB URINE ORDERAB LES Final Result [facility] [address] [place] [address] * US BEDSIDE (04/03/2025 3:33 AM EDT) Anatomical Region Laterality Modality Ultrasound Narrative 04/03/2025 3:33 AM EDT Kristie Patino MD 04/03/2025 3:39 AM Bedside Ultrasound Date/Time: 04/03/2025 3:33 AM Performed by: Kristie Patino MD Authorized by: Kristie Patino MD Exam Type: Biliary Biliary Exam Findings & Impression: Indications: patient with abdominal pain, nausea and vomiting Gallstones: the gallbladder could not be well visualized and therefore the presence of gallstones could not be determined Gallbladder Wall Thickening: the gallbladder was visualized and the gallbladder wall was not thickened Gallbladder Anterior Wall Thickness (mm): 3 Pericholecystic Fluid Present: the gallbladder was visualized and pericholecystic fluid was not present Sonographic Tovar: the gallbladder was visualized and a Sonogrphic Tovar's sign was present Other Findings: Biliary sludge noted Overal Impression: indeterminate Images: Images Saved: Yes Accession Number: [id number] us Kristie Patino MD IMG POINT OF CARE EXAMS Tiffanie l Result * ECG 12-LEAD (04/03/2025 2:19 AM EDT) Ventricular Rate EKG/MIN 72 BPM [facility] Atrial Rate 72 BPM [facility] IA Interval 146 ms [facility] QRS Duration 92 ms [facility] QT Interval 414 ms [facility] QTC Interval 453 ms [facility] P [place] 71 degrees [facility] R Wave [place] 53 degrees [facility] T Wave [place] 16 degrees [facility] 04/03/2025 2:19 AM EDT 04/03/2025 11:23 AM EDT Narrative [facility] - 04/03/2025 11:23 AM EDT Normal sinus rhythm with sinus arrhythmia RSR' or QR pattern in V1 suggests right ventricular conduction delay Borderline ECG No previous ECGs available Confirmed by Jones Reyes ([id number]) on 04/03/2025 11:23:29 AM us Kristie Patino MD ECG ORDERABLES Final Result [facility] * HCG, serum qualitative (04/02/2025 7:26 PM EDT) Only the most recent of2 resultswithin the time period is included. HCG, QUALITATIVE Negative Negative IU/L [facility] Blood 04/02/2025 7:26 PM EDT 04/02/2025 7:37 PM EDT Lissette Flower MD LAB BLOOD BKR ORD ERABLES Final Result Performing Organization Address City/[facility] Co de Phone Number [address] [address] * (ABNORMAL) LFTs (hepatic panel) (04/02/2025 7:26 PM EDT) Only the most recent of2 resultswithin the time period is included. [facility] ALKALINE PHOSPHATASE 115 39 - 117 U/L [facility] TOTAL BILIRUBIN 1.5(H) 0.0 - 1.2 mg/dL [facility] DIRECT BILIRUBIN 0.4(H) 0.0 - 0.2 mg/dL [facility] Bilirubin (Indirect) 1.1 0 - 1.5 mg/dL [facility] AST 24 0 - 37 U/L [facility] ALT 37 0 - 40 U/L [facility] TOTAL PROTEIN 6.8 6.5 - 8.0 g/dL [facility] ALBUMIN 4.3 3.9 - 4.8 g/dL [facility] GLOBULIN 2.5 1 - 4.8 g/dL [facility] A/G Ratio 1.72 1.00 - 4.80 RATIO [facility] Blood 04/02/2025 7:26 PM EDT 04/02/2025 7:37 PM EDT Lissette Flower MD LAB BLOOD BKR ORD ERABLES Final Result Performing Organization Address City/[facility]/ZIP Co de Phone Number [address] [address] * (ABNORMAL) CBC and differential (04/02/2025 7:26 PM EDT) Only the most recent of2 resultswithin the time period is included. [facility] WBC 20.37(H) 4.00 - 11.00 K/uL [facility] RBC 4.77 4.00 - 5.20 M/uL [facility] HGB 14.6 12.0 - 16.0 g/dL [facility] HCT 42.8 36.0 - 46.0 % [facility] PLT 245 150 - 450 K/uL [facility] MCV 89.7 80.0 - 100.0 fL [facility] MCH 30.6 27.0 - 31.0 pg [facility] MCHC 34.1 32.0 - 36.0 g/dL [facility] RDW 12.7 11.5 - 14.5 % [facility] MPV 10.1 8.4 - 12.0 fL [facility] NRBC 0.00 0.00 /100 WBCs [facility] ABSOLUTE NRBC 0.00 0.00 K/uL [facility] DIFF METHOD Auto [facility] NEUTS 80.0(H) 48.0 - 76.0 % [facility] LYMPHS 10.8(L) 18.0 - 41.0 % [facility] MONOS 8.2 4.0 - 11.0 % [facility] EOS 0.4 0.0 - 5.0 % [facility] BASOS 0.3 0.0 - 1.5 % [facility] Granulocytes, immature (%) 0.3 0.0 - 0.9 % [facility] ABSOLUTE NEUTS 16.28(H) 1.92 - 7.60 K/uL [facility] ABSOLUTE LYMPHS 2.19 0.72 - 4.10 K/uL [facility] ABSOLUTE MONOS 1.67(H) 0.16 - 1.10 K/uL [facility] ABSOLUTE EOS 0.09 0.00 - 0.50 K/uL [facility] ABSOLUTE BASOS 0.07 0.00 - 0.15 K/uL [facility] Granulocytes, immature 0.07 0.00 - 0.09 K/uL [facility] Blood 04/02/2025 7:26 PM EDT 04/02/2025 7:37 PM EDT Lissette Flower MD LAB BLOOD BKR ORD ERABLES Final Result Performing Organization Address City/[facility]/ZIP Co de Phone Number [address] [address] * (ABNORMAL) C-Reactive Protein (04/02/2025 7:26 PM EDT) C REACTIVE PROTEIN 23.5(H) 0.0 - 4.0 mg/L [facility] 04/02/2025 7:26 PM EDT 04/02/2025 7:37 PM EDT Lissette Flower MD LAB BLOOD BKR ORD ERABLES Final Result Performing Organization Address [facility]/ZIP Co de Phone Number [address] [address] * (ABNORMAL) Lipase (04/02/2025 7:26 PM EDT) Only the most recent of2 resultswithin the time period is included. [facility] LIPASE 15(L) 16 - 63 U/L [facility] Blood 04/02/2025 7:26 PM EDT 04/02/2025 7:37 PM EDT Lissette Flower MD LAB BLOOD BKR ORD ERABLES Final Result Performing Organization Address City/[facility]/ZIP Co de Phone Number [address] [address] * Basic metabolic panel (04/02/2025 7:26 PM EDT) Only the most recent of2 resultswithin the time period is included. Pathologist [facility] SODIUM 138 133 - 146 mmol/L [facility] CHLORIDE 102 96 - 108 mmol/L [facility] POTASSIUM 3.6 3.3 - 5.1 mmol/L [facility] CO2 25 21 - 35 mmol/L [facility] BUN 9 6 - 19 mg/dL [facility] CREATININE 0.70 0.5 - 1.5 mg/dL [facility] GLUCOSE 92 70 - 99 mg/dL [facility] CALCIUM 9.0 8.4 - 10.3 mg/dL [facility] EGFR >120 >59 mL/min/1.7 3m2 [facility] Comment:Estimated glomerular filtration rate calculated using the CKD-EPI refit equation. ANION GAP 15 10 - 20 mmol/L [facility] Blood 04/02/2025 7:26 PM EDT 04/02/2025 7:37 PM EDT us Lissette Flower MD LAB BLOOD BKR ORD ERABLES Final Result [facility] [address] [place] [address] * CT ABDOMEN/PELVIS WITH CONTRAST (04/02/2025 12:40 PM EDT) Anatomical Region Laterality Modality Abdomen, Pelvis Computed Tomogra phy 04/02/2025 1:15 PM EDT Impressions 04/02/2025 1:20 PM EDT No acute abnormality in the abdomen or pelvis. Specifically, normal appendix. Narrative 04/02/2025 1:[address] ABDOMEN/PELVIS WITH CONTRAST Referring clinician's provided indication for this examination in Epic: RLQ abdominal pain. TECHNIQUE: Multidetector-row CT of the abdomen and pelvis was performed after administration of intravenous contrast using tailored dose modulation techniques. Images were reconstructed in the axial, coronal, and sagittal planes. COMPARISON: CT ABDOMEN/PELVIS WITH CONTRAST FINDINGS: Lower Chest: No consolidation or pleural effusions. Liver: No focal lesions. Biliary: Contracted gallbladder. No biliary ductal dilatation. Spleen: No splenomegaly or focal lesions. Pancreas: No peripancreatic fat stranding or pancreatic duct dilatation. Adrenal Glands: Normal. No nodules. Kidneys/Ureters: Kidneys enhance homogeneously. No stone or hydronephrosis. Bowel: Normal appendix. No bowel obstruction or bowel wall thickening. Peritoneum/Retroperitoneum: Normal. No masses, pneumoperitoneum, or fluid. Lymph Nodes: Normal. No lymphadenopathy. Pelvic Organs/Bladder: Partially distended urinary bladder with mild wall thickening, similar to prior. Normal uterus. Simple cyst in the left ovary, most likely physiologic. Vessels: Vessels enhance homogeneously. Bones/Soft Tissues: Normal bones. Procedure Note Kelley Fortune MD - 04/02/2025 CT ABDOMEN/PELVIS WITH CONTRAST Referring clinician's provided indication for this examination in Epic:RLQ abdominal pain. TECHNIQUE: Multidetector-row CT of the abdomen and pelvis was performedafter administration of intravenous contrast using tailored dosemodulation techniques. Images were reconstructed in the axial, coronal,and sagittal planes. COMPARISON: CT ABDOMEN/PELVIS WITH CONTRAST FINDINGS: Lower Chest: No consolidation or pleural effusions. Liver: No focal lesions. Biliary: Contracted gallbladder. No biliary ductal dilatation. Spleen: No splenomegaly or focal lesions. Pancreas: No peripancreatic fat stranding or pancreatic duct dilatation. Adrenal Glands: Normal. No nodules. Kidneys/Ureters: Kidneys enhance homogeneously. No stone orhydronephrosis. Bowel: Normal appendix. No bowel obstruction or bowel wall thickening. Peritoneum/Retroperitoneum: Normal. No masses, pneumoperitoneum, orfluid. Lymph Nodes: Normal. No lymphadenopathy. Pelvic Organs/Bladder: Partially distended urinary bladder with mild wallthickening, similar to prior. Normal uterus. Simple cyst in the leftovary, most likely physiologic. Vessels: Vessels enhance homogeneously. Bones/Soft Tissues: Normal bones. IMPRESSION: No acute abnormality in the abdomen or pelvis. Specifically, normalappendix. Kathleen Ewing PA-C IMG CT ABD/PELVI S Final Result * (ABNORMAL) Urine sediment (04/02/2025 11:46 AM EDT) WBC 0-4(A) NONE SEEN /hpf [facility] RBC 0-2(A) NONE SEEN /hpf [facility] URINE EPITHELIAL 11-20(A) NONE SEEN [facility] MUCUS NONE SEEN NONE SEEN /hpf [facility] BACTERIA 3+(A) NONE SEEN /hpf [facility] 04/02/2025 11:4 6 AM EDT 04/02/2025 12:23 PM EDT Luigi Mazariegos MD LAB URINE ORDERABLES Final Resu lt Performing Organization Address City/[facility] Co de Phone Number [address] [address] * Chlamydia trachomatis and Neisseria gonorrhoeae Nucleic Acid Amplification (09/28/2024 9:04 AM EDT) CHLAMYDIA TRACHOMATIS Not Detected Not Detected [facility] NEISERIA GONORRHOEAE Not Detected Not Detected [facility] SPECIMEN TYPE URINE [facility] Urine (Urine) 09/28/2024 9:0 4 AM EDT 09/28/2024 9:06 AM EDT Daniel Coto MD LAB GENERAL ORDERABLES Final Result Performing Organization Address [facility] Co de Phone Number [address] [address] * Pap Test (09/10/2024 12:00 AM EST) Report [address] [address] Nitrocellulose Operator: Milton Hdz MD AIR POLLUTION CONTROL ENGINEER Cytology Report FINAL DIAGNOSIS A. PAP SMEAR (THIN PREP) CE: SPECIMEN ADEQUACY: Satisfactory for evaluation; transformation zone present. INTERPRETATION: NEGATIVE FOR INTRAEPITHELIAL LESION OR MALIGNANCY. This specimen was analyzed by the automated ThinPrep Imaging System (ICU Metrix.) and the selected rivas were reviewed by a floor installer. Electronically Signed Out By: LUIS M Clarke(ASCP) The Pap test is a screening test primarily for squamous cancers and precursors and has associated false-negative and false-positive results. New technologies such as liquid-based preparations may decrease but will not eliminate all false-negative results. Regular sampling and follow-up of unexplained clinical signs and symptoms are recommended to minimize false negative results. CLINICAL HISTORY Date of Last Menstrual Period: 08-18-2024 Other Clinical Conditions: Screening Pap SPECIMEN SOURCE A: PAP SMEAR (THIN PREP) CE Patient Name: COCO GIBSON : 2005 (Age: 19) Sex: F Institution: [facility] Location: [facility] Date of Collection: 09/10/2024 Date of Reported: 09/18/2024 13:45 Results to: Lennie Bruno [facility] Final Diagnosis A. PAP SMEAR (THIN PREP) CE: SPECIMEN ADEQUACY: Satisfactory for evaluation; transformation zone present. INTERPRETATION: NEGATIVE FOR INTRAEPITHELIAL LESION OR MALIGNANCY. This specimen was analyzed by the automated ThinPrep Imaging System (ICU Metrix.) and the selected rivas were reviewed by a floor installer. [facility] Conversion Type (Conversion Source) 09/10/2024 09/11/2024 9:18 AM EST us Lennie WHITLOCK CYTOLOGY ORDERABLES Edited Res ult - Final Performing Organization Address City/[facility]/ZIP Co de Phone Number [address] [address] * Hepatitis C antibody, qualitative (12/06/2022 1:44 PM EDT) HCV NON-REACTIV E NON-REACTI VE [facility] Blood 12/06/2022 1:44 PM EDT 12/06/2022 2:12 PM EDT us Emilia MCDERMOTTM LAB BLOOD BKR ORDERABLES Final Result Performing Organization Address [facility] Co de Phone Number [address] [address] from Last 3 Months or Most Recently Relevant to Health Maintenance Insurance [facility] AC [facility] [place] [id number] [facility] ACO [facility] ACO [facility] ACO [facility]CO [employer] [place] [address] [place] [address] ACO [facility] ACO ACO [facility] ACO [facility] ACO [facility] ACO Advance Directives For more information, please contact: [phone] (9AM - 5PM [place], Saturday-Saturday) Documents on File Type Date Recorded Patient Development Technician Expl anation Healthcare Proxy 05/13/2023 2:24 PM Michelle Ryan [facility] Care Proxy - [email or web address] * Full Code (Latest Code Status on File) Date Activated Date Inactivated Comments 07/10/2023 1:11 AM Question Answer Comments Code Status Confirmed With: Patient * Full Code Date Activated Date Inactivated Comments 06/12/2023 5:54 PM 07/10/2023 1:11 AM Question Answer Comments Code Status Confirmed With: Patient * Full Code Date Activated Date Inactivated Comments 05/10/2023 11:16 AM 06/12/2023 5:54 PM Question Answer Comments Code Status Confirmed With: Patient * Full Code Date Activated Date Inactivated Comments 12/12/2021 12:19 PM 05/10/2023 11:16 AM Question Answer Comments Code Status Confirmed With: Patient Healthcare Agents on File Name Relationship Healthcare Agent Relationshi p Communication Michelle Ryan Grandmother Alternate Health care Agent (Proxy form on file) Antonino Rea Other .Primary Healt h Care Agent (Proxy form on file) Care Teams Retail Sales Professional Relationship Specialty Start Date End Date Kathleen Jimenez MD [address] [place] [id number] [email or web address] PCP - General Family Medicine 04/05/25 Additional Source Comments The information contained in this document represents components of the legal health record. It is not the complete legal health record.[facility]
--- OUTSIDE RECORDS SUMMARY | 2025-06-04 06:48 | XMS_ITS | Encounter Summary ---
Author Organization [facility] Address [address] [place] [address] [place] [address] Phone Care Team Providers Care Astronautical Engineer Name Role Phone Lennie Guzmán Primary Care Provider [phone] Ger Van MD Unavailable [phone] Kathleen Jimenez MD Unavailable [phone] Damian Issa DIESEL POWERPLANT MECHANIC HELPER Unavailable [phone] Constanza Duran Unavailable [email or web address] Brett Tee MD Unavailable [phone] Jackie SheikhW Unavailable favian Bella Calderon RN Unavailable Laxmi Martinez Unavailable Laxmi Martinez Unavailable Damian Issa DIESEL POWERPLANT MECHANIC HELPER Unavailable [phone] Kathleen Jimenez MD Primary Care Provider [phone] Encounter Details Date Type Department Care Team (Late st Contact Info) Description 08/06/2021 Procedure Pass [facility], Ct Scan - [address] [address] Social History Tobacco Use Types Packs/Day Years [...] Date of Assessment Author No Risk Indicated 08/06/2021 3:29 PM Talya Mcconnell RN * [place] Suicide Severity Rating Scale (Screener/Recent Self-Report) Question Answer Date of Assessment Author 1. Wish to be (Past 1 Month) No 022 3:29 PM Talya Mcconnell RN 2. Non-Specific Active Suici [place] Thoughts (Past 1 Month) No 08/06/2021 3:29 PM Hiwot Mcconnell RN 6. Suicidal Behavior (Lifetime) No 3:29 PM Talya Mcconnell RN documented as of this encounter Plan of Treatment Not on file documented as of this encounter Visit Diagnoses Not on filedocumented in this encounter Additional Health Concerns Infection Onset Date Last Indicated Resolved Time COVID-19 04/02/2023 04/02/2023 04/23/2023 1:22 AM EDT documented as of this encounter Care Teams Astronautical Engineer Relationship Specialty Start Date End Date Lennie Guzmán PA [address] [place] [address] [email or web address] PCP - General 07/31/21 04/04/25 Kathleen Jimenez MD [address] [place] [address] [email or web address] PCP - General Family Medicine 04/05/25 Ger Van MD [address] [place] [address] [email or web address] Insurance Assigned Provider 04/28/22 05/27/22 Kathleen Jimenez MD [address] [place] [address] Insurance Assigned Provider 05/27/22 11/03/22 Damian Issa DIESEL POWERPLANT MECHANIC HELPER [address] [place] [address] PHCM Extractions Technologist 09/14/22 04/19/24 Constanza Duran [address] [place] [address] [email or web address] E Commerce Analyst 11/01/22 11/06/22 Brett Tee MD [address] [place] [address] [email or web address] Insurance Assigned Provider 11/03/22 03/30/23 Jackie Sheikh LCSW [address] [place] [address] [email or web address] Extractions Technologist 01/08/23 04/03/23 Bella Calderon RN [address] [place] [address] [email or web address] PHC Prison Officer 01/25/23 02/03/23 Laxmi Martinez [address] [place] [address] [email or web address] Community Health Worker 06/11/23 09/09/23 Laxmi Martinez [address] [place] [address] [email or web address] Community Health Worker 01/06/24 03/16/24 Damian Issa DIESEL POWERPLANT MECHANIC HELPER [address] [place] [address] [email or web address] PHCM Extractions Technologist 12/22/24 01/19/25 documented as of this encounter Additional Source Comments The information contained in this document represents components of the legal health record. It is not the complete legal health record.[facility]
--- OUTSIDE RECORDS SUMMARY | 2025-06-04 06:48 | XMS_ITS | Encounter Summary ---
Author Organization [facility] Address [address] [place] [address] Phone Care Team Providers Care Driver Guard Name Role Phone Lennie Guzmán Primary Care Provider [phone] Ger Van MD Unavailable [phone] Kathleen Jimenez MD Unavailable [phone] Damian Issa AUTOMOTIVE MAINTENANCE TECHNICIAN Unavailable [phone] Constanza Duran Unavailable [email or web address] Brett Tee MD Unavailable [phone] Jackie SheikhW Unavailable favian Bella Calderon RN Unavailable Laxmi Martinez Unavailable Laxmi Martinez Unavailable [email or web address] Damian Issa AUTOMOTIVE MAINTENANCE TECHNICIAN Unavailable [phone] Kathleen Jimenez MD Primary Care Provider [phone] Encounter Details Date Type Department Care Team (Late st Contact Info) Description 12/12/2021 Procedure Pass [place] Admitting Dept - Virtual Department [address] [place] [address] [id number] Social History Tobacco Use Types Packs/Day Years Used Date Smoking Tobacco: Former Cigarettes Q uit: 2021 Smokeless Tobacco: Never Alcohol Use Standard Drinks/Week Comments Not Currently 0 (1 standard drink = 0.6 oz pur e alcohol) not during Comments No Sex and Gender Information Value Date Recorded Sex Assigned at Female 12/14/2019 2:51 PM EDT Legal Sex Female 8:44 PM EDT Gender Identity Female 12/12/2021 5:25 AM EDT Sexual Orientation Bisexual 12/12/2021 5: 25 AM EDT documented as of this encounter Functional Status * Calculated C-SSRS Risk Score (Lifetime/Recent) Answer Date of Assessment Author No Risk Indicated 12/12/2021 5:23 AM EDT Dana Johansen RN * [place] Suicide Severity Rating Scale (Screener/Recent Self-Report) Question Answer Date of Assessment Author 1. Wish to be (Past 1 Month) No 12/12/2021 5:23 AM EDT Dana Johansen RN 2. Non-Specific Active Suicidal Thoughts (Past 1 Month) No 12/12/2021 5:23 AM EDT Dana Johansen RN 6. Suicidal Behavior (Lifetime) No 12/12/2021 5:23 AM EDT Dana Johansen RN documented as of this encounter Plan of Treatment Not on file documented as of this encounter Visit Diagnoses Not on filedocumented in this encounter Additional Health Concerns Infection Onset Date Last Indicated Resolved Time COVID-19 04/02/2023 04/02/2023 04/23/2023 1:22 AM EDT documented as of this encounter Care Teams Driver Guard Relationship Specialty Start Date End Date Lennie Guzmán PA [address] [place] [address] [email or web address] PCP - General 07/31/21 04/04/25 Kathleen Jimenez MD [address] [place] [address] [email or web address] PCP - General Family Medicine 04/05/25 Ger Van MD [address] [place] [address] [email or web address] Insurance Assigned Provider 04/28/22 05/27/22 Kathleen Jimenez MD [address] [place] [address] Insurance Assigned Provider 05/27/22 11/03/22 Damian Issa AUTOMOTIVE MAINTENANCE TECHNICIAN [address] [place] [address] PHCM Commercial Driver'S License Driver 09/14/22 04/19/24 Constanza Duran [address] [place] [address] [email or web address] 11/01/22 11/06/22 Brett Tee MD [address] [place] [address] [email or web address] Insurance Assigned Provider 11/03/22 03/30/23 Jackie Sheikh LCSW [address] [place] [address] [email or web address] Commercial Driver'S License Driver 01/08/23 04/03/23 Bella Calderon RN [address] [place] [address] [email or web address] PHC School Bus Driver/Teacher Assistant 01/25/23 02/03/23 Laxmi Martinez [address] [place] [address] [email or web address] Community Health Worker 06/11/23 09/09/23 Laxmi Martinez [address] [place] [address] [email or web address] Community Health Worker 01/06/24 03/16/24 Damian Issa AUTOMOTIVE MAINTENANCE TECHNICIAN [address] [place] [address] [email or web address] PHCM Commercial Driver'S License Driver 12/22/24 01/19/25 documented as of this encounter Additional Source Comments The information contained in this document represents components of the legal health record. It is not the complete legal health record.[facility]
--- OUTSIDE RECORDS SUMMARY | 2025-06-04 06:48 | XMS_ITS | Encounter Summary ---
Author Organization [facility] Address [address] [place] [address] Phone Care Team Providers Care Cold Storage Superintendent Name Role Phone Rafia Mullins MD Primary Care Provider [phone] Lennie Guzmán Primary Care Provider [phone] Ger Van MD Unavailable [phone] Kathleen Jimenez MD Unavailable [phone] Damian Issa Unavailable [phone] Constanza Duran Unavailable [email or web address] Brett Tee MD Unavailable [phone] Jackie SheikhW Unavailable favian Bella Calderon RN Unavailable Laxmi Martinez Unavailable Laxmi Martinez Unavailable Damian Issa Unavailable [phone] Kathleen Jimenez MD Primary Care Provider [phone] Encounter Details Date Type Department Care Team (Late st Contact Info) Description 08/19/2018 Ancillary Orders [facility], X-Ray - [address] [address] Maggy Garica NP [address] [place] [address] [email or web address] Social History Tobacco Use Types Packs/Day Years [...] documented as of this encounter Results * XR KNEE 4 OR MORE VIEWS (RIGHT) (08/19/2018 7:44 PM EST) Anatomical Region Laterality Modality Knee Right Radiographic Joanna ging 08/19/2018 7:51 PM EST Impressions 08/19/2018 7:51 PM EST Unremarkable plain film appearance of the knee POS [id number] Narrative 08/19/2018 7:51 PM EST 4 views. No comparison. No fracture or dislocation. No gross joint effusion. No evidence of tumor or infection. No significant arthritic changes Procedure Note Anuj Mcneill MD - 08/19/2018 4 views. No comparison. No fracture or dislocation. No gross joint effusion. No evidence of tumor or infection. No significant arthritic changes IMPRESSION: Unremarkable plain film appearance of the knee POS [id number] Maggy Garcia NP IMG XR LOWER EXTREMITY Final Res ult documented in this encounter Visit Diagnoses Diagnosis Pain Generalized pain Pain Generalized pain documented in this encounter Additional Health Concerns Infection Onset Date Last Indicated Resolved Time COVID-19 04/02/2023 04/02/2023 04/23/2023 1:22 AM EDT documented as of this encounter Care Teams Cold Storage Superintendent Relationship Specialty Start Date End Date Rafia Mullins MD [address] [place] [address], [address] [place] [address] [email or web address] PCP - General 05/07/17 07/30/21 Lennie Guzmán PA [address] [place] [address] [email or web address] PCP - General 07/31/21 04/04/25 Kathleen Jimenez MD [address] [place] [address] PCP - General Family Medicine 04/05/25 Ger Van MD [address] [place] [address] Insurance Assigned Provider 04/28/22 05/27/22 Kathleen Jimenez MD [address] [place] [address] Insurance Assigned Provider 05/27/22 11/03/22 Damian Issa LICSW [address] [place] [address] [facility] Supervisor Plate Forming 09/14/22 04/19/24 Constanza Duran [address] [place] [address] [email or web address] PHCM Community Wind Operations Manager 11/01/22 11/06/22 Brett Tee MD [address] [place] [address] [email or web address] Insurance Assigned Provider 11/03/22 03/30/23 Jackie Sheikh LCSW [address] [place] [address] [email or web address] Supervisor Plate Forming 01/08/23 04/03/23 Bella Calderon RN [address] [place] [address] PHCM Solar Systems Designer 01/25/23 02/03/23 Laxmi Martinez [address] [place] [address] [email or web address] Community Health Worker 06/11/23 09/09/23 Laxmi Martinez [address] [place] [address] [email or web address] Community Health Worker 01/06/24 03/16/24 Damian Issa LICSW [address] [place] [address] PHC Supervisor Plate Forming 12/22/24 01/19/25 documented as of this encounter Additional Source Comments The information contained in this document represents components of the legal health record. It is not the complete legal health record.[facility]
--- OUTSIDE RECORDS SUMMARY | 2025-06-04 06:48 | XMS_ITS | Encounter Summary ---
Author Organization [facility] Address [address] [place] [address] [place] [address] Phone Care Team Providers Care Security Test Engineer Name Role Phone Lennie Guzmán Primary Care Provider [phone] Damian Issa FRAME STRAIGHTENER Unavailable [phone] Laxmi Martinez Unavailable [email or web address] Laxmi Martinez Unavailable Damian Issa FRAME STRAIGHTENER Unavailable [phone] Kathleen Jimenez MD Primary Care Provider [phone] Encounter Details Date Type Department Care Team (Late st Contact Info) Description 07/11/2023 Procedure Pass [facility] [address] [place] [address] Social History Tobacco Use Types Packs/Day Years Used Date Smoking Tobacco: Former Cigarettes Q uit: 2020 Smokeless Tobacco: Never Alcohol Use Standard Drinks/Week Comments Not Currently 0 (1 standard drink = 0.6 oz pure alcohol) not during , stopped drinking in July Education Answer Date Recorded Are you interested [...] uch as food, clothing, or medical care? Deferred 07/10/2023 In the past 12 months have y ou been in a relationship with a person who hurts, threatens, or tries to control you? Deferred 07/10/2023 Are you denied basic needs s uch as food, clothing, or medical care? Deferred 07/10/2023 In the past 12 months have y ou been in a relationship with a person who hurts, threatens, or tries to control you? Deferred 07/10/2023 Comments No Sex and Gender Information Value [...] documented as of this encounter Care Teams Security Test Engineer Relationship Specialty Start Date End Date Lennie Guzmán PA [address] [place] [address] [email or web address] PCP - General 07/31/21 04/04/25 Kathleen Jimenez MD [address] [place] [address] [email or web address] PCP - General Family Medicine 04/05/25 Damian Issa LICSW [address] [place] [address] PHCM Acid Regenerator 09/14/22 04/19/24 Laxmi Martinez [address] [place] [address] [email or web address] Community Health Worker 06/11/23 09/09/23 Laxmi Martinez [address] [place] [address] [email or web address] Community Health Worker 01/06/24 03/16/24 Damian Issa LICSW [address] [place] [address] PHCM Acid Regenerator 12/22/24 01/19/25 documented as of this encounter Additional Source Comments The information contained in this document represents components of the legal health record. It is not the complete legal health record.[facility]
--- OUTSIDE RECORDS SUMMARY | 2025-06-04 06:48 | XMS_ITS | Encounter Summary ---
Author Organization [facility] Address [address] [place] [address] Phone Care Team Providers Care Supervisor Paper Testing Name Role Phone Rafia Mullins MD Primary Care Provider [phone] Lennie Guzmán Primary Care Provider [phone] Ger Van MD Unavailable [phone] Kathleen Jimenez MD Unavailable [phone] Damian Issa Unavailable [phone] Constanza Duran Unavailable [email or web address] Brett Tee MD Unavailable [phone] Jackie SheikhW Unavailable favian Bella Calderon RN Unavailable Laxmi Martinez Unavailable Laxmi Martinez Unavailable Damian Issa Unavailable [phone] Kathleen Jimenez MD Primary Care Provider [phone] Encounter Details Date Type Department Care Team (Late st Contact Info) Description 08/19/2018 Ancillary Orders [facility], X-Ray - [address] [address] Maggy Garcia NP [address] [place] [address] [email or web address] Social History Tobacco Use Types Packs/Day [...] as of this encounter Results * XR PELVIS AP PLUS FROG OR OUTLET 2 VIEWS (08/19/2018 7:48 PM EST) Anatomical Region Laterality Modality Hip, Pelvis Radiographic Joanna ging 08/19/2018 7:51 PM EST Impressions 08/19/2018 7:52 PM EST Normal plain film appearance of the pelvis and hips. POS [id number] Narrative 08/19/2018 7:52 PM EST AP pelvis and bilateral hips, 2 views No comparison No arthritic changes. No evidence of trauma, tumor, AVN, impingement or infection. No soft tissue calcifications. Unremarkable bowel gas pattern Procedure Note Anuj Mcneill MD - 08/19/2018 AP pelvis and bilateral hips, 2 views No comparison No arthritic changes. No evidence of trauma, tumor, AVN, impingement or infection. No soft tissue calcifications. Unremarkable bowel gas pattern IMPRESSION: Normal plain film appearance of the pelvis and hips. POS [id number] Maggy Garcia NP IMG XR PELVIS Final Result documented in this encounter Visit Diagnoses Diagnosis Pain Generalized pain Pain Generalized pain documented in this encounter Additional Health Concerns Infection Onset Date Last Indicated Resolved Time COVID-19 04/02/2023 04/02/2023 04/23/2023 1:22 AM EDT documented as of this encounter Care Teams Supervisor Paper Testing Relationship Specialty Start Date End Date Rafia Mullins MD [address] [facility], [address] [place] [address] PCP - General 05/07/17 07/30/21 Lennie Guzmán PA [address] [place] [address] [email or web address] PCP - General 07/31/21 04/04/25 Kathleen Jimenez MD [address] [place] [address] PCP - General Family Medicine 04/05/25 Ger Van MD [address] [place] [address] [email or web address] Insurance Assigned Provider 04/28/22 05/27/22 Kathleen Jimenez MD [address] [place] [address] Insurance Assigned Provider 05/27/22 11/03/22 Damian Issa LICSW [address] [place] [address] [email or web address] PHCM Bulldozer Mechanic 09/14/22 04/19/24 Constanza Duran [address] [place] [address] [email or web address] [facility] Community Head Of Conservation 11/01/22 11/06/22 Brett Tee MD [address] [place] [address] [email or web address] Insurance Assigned Provider 11/03/22 03/30/23 Jackie Sheikh LCSW [address] [place] [address] [email or web address] Bulldozer Mechanic 01/08/23 04/03/23 Bella Calderon, RN [address] [place] [address] [email or web address] PHCM Transformer Shop Supervisor 01/25/23 02/03/23 Laxmi Martinez [address] [place] [address] [email or web address] Community Health Worker 06/11/23 09/09/23 Laxmi Martinez [address] [place] [address] [email or web address] Community Health Worker 01/06/24 03/16/24 Damian Issa LICSW [address] [place] [address] [email or web address] PHC Bulldozer Mechanic 12/22/24 01/19/25 documented as of this encounter Additional Source Comments The information contained in this document represents components of the legal health record. It is not the complete legal health record.[facility]
== END 2025-06-04 06:52 | disposition home or self-care (01) ==
PROVIDERS: Emergency Provider Emergency Medicine; PCP Physician Assistant
DX: S61.011A Laceration without foreign body of right thumb without damage to nail, initial encounter (principal); W26.9XXA Contact with unspecified sharp object(s), initial encounter; Y93.G3 Activity, cooking and baking; Y92.090 Kitchen in other non-institutional residence as the place of occurrence of the external cause; Y99.9 Unspecified external cause status
CPT/HCPCS: 12002; 99284